=== PATIENT | female | born 1965 | race Hispanic/Latino ===

== ENCOUNTER → 2020-04-24 09:03 | Outpatient (CLI) | payer OTHER, SELFPAY ==
--- NOTE | 2020-04-24 | DI.MG.S_ITS ---
BILATERAL DIGITAL SCREENING MAMMOGRAM 3D/2D WITH CAD: 04/24/2020 CLINICAL: Routine screening. Family history of breast cancer. Comparison is made to exams dated: 02/08/2019 mammogram, 12/17/2016 mammogram, and 11/03/2016 mammogram - [facility]. There are scattered fibroglandular elements in both breasts. Current study was also evaluated with a Computer Aided Detection (CAD) system. There is a stable benign cyst in the left breast. No significant masses, calcifications, or other findings are seen in either breast. There has been no significant interval change. IMPRESSION: BENIGN There is no mammographic evidence of malignancy. A 1 year screening mammogram is recommended. This exam was interpreted at Station ID: [id number]. NOTE: For mammograms, a report in lay terms will be sent to the patient. Approximately 15% of breast malignancies will not be visualized mammographically. In the management of a palpable breast mass, a negative mammogram must not discourage biopsy of a clinically suspicious lesion. Electronically Signed By: Olaf bush/carmina:04/24/2020 10:38:30 letter sent: Normal Exam ACR BI-RADS Category 2: Benign Finding(s) 3342F
== END ==
PROVIDERS: Referring Provider Student in an Organized Health Care Education/Training Program; Visit Provider Student in an Organized Health Care Education/Training Program
DX: Z12.31 Encounter for screening mammogram for malignant neoplasm of breast (principal); Z80.3 Family history of malignant neoplasm of breast
CPT/HCPCS: 77063; 77067

== ENCOUNTER → 2021-06-12 11:12 | Outpatient (CLI) | payer OTHER, SELFPAY ==
--- NOTE | 2021-06-12 | DI.MG.S_ITS ---
BILATERAL DIGITAL SCREENING MAMMOGRAM 3D/2D WITH CAD: 06/12/2021 CLINICAL: Routine screening. Family history of breast cancer. Comparison is made to exams dated: 04/24/2020 mammogram - [facility], 02/08/2019 mammogram, and 12/17/2016 mammogram - [facility]. There are scattered fibroglandular elements in both breasts. Current study was also evaluated with a Computer Aided Detection (CAD) system. There are grouped regional calcifications in the right breast at 1 o'clock middle depth. There is a developing an asymmetry with an indistinct margin and grouped fine pleomorphic calcifications in the left breast at 7 o'clock anterior depth. There is architectural distortion associated with the asymmetry. No other significant masses or calcifications are seen in either breast. IMPRESSION: INCOMPLETE: NEEDS ADDITIONAL IMAGING EVALUATION The grouped regional calcifications in the right breast at 1 o'clock middle depth are indeterminate. Spot magnification views are recommended. The developing asymmetry in the left breast at 7 o'clock anterior depth is indeterminate. Additional views with possible ultrasound are recommended. This exam was interpreted at Station ID: [id number]. NOTE: For mammograms, a report in lay terms will be sent to the patient. Approximately 15% of breast malignancies will not be visualized mammographically. In the management of a palpable breast mass, a negative mammogram must not discourage biopsy of a clinically suspicious lesion. Electronically Signed By: Zain Yi M.D., jr/carmina:06/12/2021 13:00:42 letter sent: Additional Imaging Needed ACR BI-RADS Category 0: Incomplete 3340F
== END ==
PROVIDERS: Referring Provider Pediatrics; Visit Provider Pediatrics
DX: Z12.31 Encounter for screening mammogram for malignant neoplasm of breast (principal); Z80.3 Family history of malignant neoplasm of breast
CPT/HCPCS: 77063; 77067

== ENCOUNTER → 2021-07-10 11:16 | Outpatient (CLI) | payer OTHER, SELFPAY ==
--- NOTE | 2021-07-10 | DI.MG.S_ITS ---
BILATERAL DIGITAL DIAGNOSTIC MAMMOGRAM 3D/2D: 07/10/2021 CLINICAL: Additional evaluation requested from prior study. Comparison is made to exams dated: 06/12/2021 mammogram, 04/24/2020 mammogram - [facility], and 02/08/2019 mammogram - [facility]. There are scattered fibroglandular elements in both breasts. There are grouped regional calcifications in the right breast at 1 o'clock middle depth. There is a developing asymmetry with an indistinct margin in the left breast at 7 o'clock anterior depth. No other significant masses or calcifications are seen in either breast. IMPRESSION: INCOMPLETE: NEEDS ADDITIONAL IMAGING EVALUATION The developing asymmetry in the left breast at 6-7 o'clock anterior depth is indeterminate. An ultrasound will be performed immediately following this exam to further evaluate. The grouped regional calcifications in the right breast at 1 o'clock middle depth are probably benign. A follow-up mammogram in 6 months is recommended. This exam was interpreted at Station ID: [id number]. NOTE: For mammograms, a report in lay terms will be sent to the patient. Approximately 15% of breast malignancies will not be visualized mammographically. In the management of a palpable breast mass, a negative mammogram must not discourage biopsy of a clinically suspicious lesion. Electronically Signed By: Zain Yi M.D. jr/:07/10/2021 15:12:11 ACR BI-RADS Category 0: Incomplete [id number]
--- NOTE | 2021-07-10 | DI.US.S_ITS ---
LIMITED ULTRASOUND OF LEFT BREAST: 07/10/2021 CLINICAL: Patient returns today to evaluate an asymmetry in the left breast. Comparison is made to exams dated: 07/10/2021 mammogram, 06/12/2021 mammogram, 04/24/2020 mammogram - [facility], 02/08/2019 mammogram, 12/17/2016 mammogram, and 12/17/2016 ultrasound - [facility]. Color flow, real-time, and Doppler ultrasound of the left breast 6-7 o'clock region were performed. Melo scale images of the real-time examination were reviewed. There are multiple benign simple cysts in the left breast inferior lateral quadrant anterior depth. IMPRESSION: BENIGN There is no sonographic evidence of malignancy in the left breast. The multiple simple cysts in the left breast are benign. A follow-up RIGHT mammogram in 6 months is recommended to demonstrate stability of the grouped calcifications on the right. This exam was interpreted at Station ID: [id number]. Electronically Signed By: Zain Yi M.D. jr/:07/10/2021 15:14:19 letter sent: Normal Exam Ultrasound BI-RADS: 2 Benign
== END ==
DX: R92.8 Other abnormal and inconclusive findings on diagnostic imaging of breast (principal); R92.1 Mammographic calcification found on diagnostic imaging of breast; N60.02 Solitary cyst of left breast
CPT/HCPCS: 76642; 77066; G0279

== ENCOUNTER → 2024-11-11 11:40 | Outpatient (CLI) | payer OTHER, SELFPAY ==
--- NOTE | 2024-11-11 11:42 | DI.US.S_ITS ---
PROCEDURE: US HERNIA INDICATIONS: LLQ PAIN / QUERY HERNIA TECHNIQUE: Real-time focused scanning was performed of the abdomen, with image documentation. COMPARISON: None. FINDINGS AND IMPRESSION: No fluid collection, mass, or hernia identified in the area of concern in the left lower quadrant. Dictated by: Bj Underwood M.D. on 11/12/2024 at 17:47 Approved by: Bj Underwood M.D. on 11/12/2024 at 17:47
== END ==
DX: R10.814 Left lower quadrant abdominal tenderness (principal)
CPT/HCPCS: 76705